=== PATIENT | male | born 1965 | race African-American/Black ===

== ENCOUNTER 2017-10-21 05:53 | Emergency (ER) | payer BC ==
[2015-02-10 11:20] VITALS: BMI 29.3
[~2017-10-21 05:53] MED LIST: AZOR 5-20 MG TA1 TAB PO; BAYER CHEWABLE81 MG PO; GALZIN50 MG; VITAMIN B-121000 MCG; [UNRECOGNIZED DRUG - OTHER]
[2017-10-21 06:18] LABS: APPEARANCE CLEAR (CLEAR); BILIRUBIN NEGATIVE (NEGATIVE); COLOR YELLOW (YELLOW); GLUCOSE 100 mg/dL (NEGATIVE); KETONE NEGATIVE (NEGATIVE); NITRITE NEGATIVE (NEGATIVE); PROTEIN 2+ mg/dL (NEGATIVE); SPECIFIC GRAVITY 1.015 (1.005-1.020); UROBILINOGEN NORMAL (NORMAL)
[2017-10-21 06:21] LABS: BASOPHILS 0.8 % (0-2); HEMATOCRIT 42.4 % (42.0-54.0); HEMOGLOBIN 14.2 g/dL (13.5-17.5); LYMPHOCYTES 23.3 % (15-50); MCH 27.7 pg (26.0-34.0); MCHC 33.5 g/dL (31.0-37.0); MCV 82.8 fL (80.0-100.0); MEAN PLATELET VOLUME 10.7 fL (7.4-10.4); MONOCYTES 7.8 % (2-11); NEUTROPHILS 66.1 % (40-80); PLATELET COUNT 212 10x3/uL (130-400); RBC 5.12 10x6/uL (4.20-6.10); RDW 13.4 % (11.5-14.5); WBC 5.1 10x3/uL (4.8-10.8)
[2017-10-21 06:54] LABS: ALBUMIN 4.1 g/dL (3.4-5.0); ANION GAP 13.4 mmol/L (8-16); BILIRUBIN - TOTAL 0.5 mg/dL (0.2-1.3); CARBON DIOXIDE 24.5 mmol/L (21.0-32.0); CREATININE - SERUM 1.1 mg/dL (0.6-1.3); POTASSIUM - SERUM 3.9 mmol/L (3.5-5.1); PROTEIN - SERUM 7.4 g/dL (6.4-8.2)
== END 2017-10-21 08:28 | disposition home or self-care (01) ==
LOC: D.ER 05:53
PROVIDERS: Family Medicine
DX: K57.92 Diverticulitis of intestine, part unspecified, without perforation or abscess without bleeding (principal); I10 Essential (primary) hypertension

== ENCOUNTER 2018-01-01 08:00 | Outpatient (CLI) | payer BC ==
[2015-02-10 11:20] VITALS: Wt 86.2 kg
[2018-01-01 14:28] LABS: HEMATOCRIT 38.7 % (42.0-54.0); HEMOGLOBIN 12.8 g/dL (13.5-17.5); MCH 27.1 pg (26.0-34.0); MCHC 33.1 g/dL (31.0-37.0); MEAN PLATELET VOLUME 10.1 fL (7.4-10.4); RBC 4.72 10x6/uL (4.20-6.10); RDW 13.7 % (11.5-14.5); WBC 3.2 10x3/uL (4.8-10.8)
== END 2018-01-02 08:01 | disposition home or self-care (01) ==
LOC: D.OPS 08:00 → EDSTATUS 01-03 12:30 → D.OPS 01-03 12:30
PROVIDERS: Anesthesiology
DX: M65.312 Trigger thumb, left thumb (principal); Z01.810 Encounter for preprocedural cardiovascular examination; Z01.811 Encounter for preprocedural respiratory examination; Z01.812 Encounter for preprocedural laboratory examination; Z53.9 Procedure and treatment not carried out, unspecified reason

== ENCOUNTER 2018-02-21 06:25 | Day surgery (SDC) | payer BC ==
[2018-02-20 19:20] LABS: HEMATOCRIT 41.4 % (42.0-54.0); HEMOGLOBIN 13.6 g/dL (13.5-17.5); MCH 27.5 pg (26.0-34.0); MCHC 32.9 g/dL (31.0-37.0); MCV 83.6 fL (80.0-100.0); MEAN PLATELET VOLUME 10.9 fL (7.4-10.4); RBC 4.95 10x6/uL (4.20-6.10); RDW 14.6 % (11.5-14.5); WBC 3.8 10x3/uL (4.8-10.8)
[~2018-02-21] VITALS: Ht 175.3 cm; Wt 86.2 kg
--- NOTE | ~2018-02-21 | OP ---
PATIENT NAME: CHARO PASTOR MEDICAL RECORD: [id number] :63 LOCATION:[facility] ADMISSION DATE: SURGEON: RAHEEM ROWE MD DATE OF OPERATION: 02/21/2018 PREOPERATIVE DIAGNOSIS: Trigger thumb, left thumb. POSTOPERATIVE DIAGNOSIS: Trigger thumb, left thumb. PROCEDURE: Left trigger thumb release. SURGEON: Raheem Rowe MD ANESTHESIA: Regional with TIVA. INTRAOPERATIVE COMPLICATIONS: None. SUMMARY OF PATHOLOGIC FINDINGS: The patient has a very tight A1 saud at the base of the thumb. There were minimal attritional changes seen of the flexor tendon of the thumb. OPERATIVE SUMMARY IN DETAIL: After obtaining the appropriate preoperative orthopedic surgery consent as well as anesthetic consultation, evaluation and clearance, the patient was brought to the operating room and placed on the operating table in supine position. After adequate general laryngeal mask airway was administered, tourniquet was placed on the proximal aspect of left upper extremity. Left upper extremity was then prepped and draped in routine sterile fashion. The arm was elevated and exsanguinated, tourniquet was inflated to 250 mmHg. Very minimal incision was made just over the A1 saud. Digital nerves were identified and gently spread. The A1 saud was identified and incised in its entirety under direct visualization. Once the A1 saud was completely incised, the thumb flexor tendons were evaluated and found to have slight attritional changes; however, no tearing was noted. This was then irrigated and closed with 4-0 Prolene. The area was irrigated and closed with Prolene. Sterile dressings were applied. Tourniquet was deflated. The patient was awakened and taken to the recovery room in stable condition. All final needle and sponge counts were correct. TRANSINT:[id number] Voice Confirmation ID: [id number] DOCUMENT ID: [id number] RAHEEM ROWE MD at 1418 CC: [id number] DICTATION DATE: 02/28/18 1241 MANUFACTURING QUALITY ENGINEER: 02/28/18 1249 [facility] 02/21/[address] [id number]
[2018-02-21 07:05] VITALS: BP 156/64; Ht 175.3 cm; Wt 86.2 kg
[2018-02-21] MEDS ORDERED: HYDROCODONE-APA1 TAB PO (09:14)
== END 2018-02-21 10:30 | disposition home or self-care (01) ==
LOC: D.OPS 06:25 → D.PAN 08:05 → D.OPS 08:05 → D.PAN 08:15 → D.OPS 08:15
PROVIDERS: Anesthesiology
DX: M65.312 Trigger thumb, left thumb (principal); Z01.812 Encounter for preprocedural laboratory examination

== ENCOUNTER → 2018-07-31 07:33 | Outpatient (CLI) | payer BC ==
[2018-02-21 07:05] VITALS: BMI 28.1
[~2018-07-31 07:33] MED LIST changes: +HYDROCODONE-APA1 TAB PO
== END | disposition home or self-care (01) ==
LOC: D.MRI 07:33
DX: M25.512 Pain in left shoulder (principal)

== ENCOUNTER 2018-11-26 05:35 | Day surgery (SDC) | payer BC ==
[2018-11-25 15:05] LABS: HEMATOCRIT 36.6 % (42.0-54.0); HEMOGLOBIN 12.3 g/dL (13.5-17.5); MCH 27.1 pg (26.0-34.0); MCHC 33.6 g/dL (31.0-37.0); MCV 80.6 fL (80.0-100.0); MEAN PLATELET VOLUME 10.2 fL (7.4-10.4); RBC 4.54 10x6/uL (4.20-6.10); RDW 14.1 % (11.5-14.5); WBC 2.7 10x3/uL (4.8-10.8)
[~2018-11-26 05:35] MED LIST changes: +CIALIS2.5 MG PO; +LISINOPRIL10 MG PO; +[UNRECOGNIZED DRUG - OTHER] PO
[2018-11-26] MEDS ORDERED: VALTREX500 MG PO (06:15)
[2018-11-26 06:18] VITALS: BP 111/69; BMI 28.4
--- NOTE | 2018-11-26 08:13 | NUR ---
[address] OHARA. Katy LEIJA R.N.
--- NOTE | 2018-11-26 08:49 | NUR ---
0845 REQUESTS PAIN MED. INFORMED NO PAIN MED ORDERED OR AVAILABLE. PT GIVEN ICE PACK. @ BEDSIDE. Katy LEIJA R.N.
--- NOTE | 2018-11-26 09:37 | NUR ---
0930 1 NORCIO 5/325MG PO FOR COMPLAINTS OF RECTAL PAIN @ 01/25. DENIES THE NEED TO URINATE @ THIS TIME. Katy LEIJA R.N.
--- NOTE | 2018-11-26 10:31 | OP ---
PATIENT NAME: CHARO PASTOR MEDICAL RECORD: [id number] :63 [facility] ADMISSION DATE: SURGEON: DARRYL OHARA MD DATE OF OPERATION: 11/26/2018 SURGEON: Darryl Ohara MD ANESTHESIA: TIVA by Orlin Butt CRNA DIAGNOSIS: Bladder outlet obstruction, elevated PSA of 3.46. PROCEDURE: Cystoscopy, transrectal ultrasound and prostate biopsy. FINDINGS: On cystoscopy, lateral lobe hyperplasia of the prostate. Inflammation of the trigone of the bladder with single ureteral orifices bilaterally. No bladder tumors were seen. On transrectal ultrasound, there is a 21 gram prostate without intraprostatic stones and no hypoechoic areas. SPECIMENS: Prostate biopsy cores. BLOOD LOSS: Minimal. CLINICAL HISTORY: This is a 53-year-old male, who was initially referred for low testosterone levels. He also has ED. He has some voiding symptoms including nocturia times 3. When we tested his PSA on 09/16/2018, it was 3.46. He comes today to have a prostate biopsy performed. As well, I will perform cystoscopy to evaluate his prostatic urethra. HE IS ALLERGIC TO JOSSIE AND CLINDAMYCIN. He was given Ancef hvac controls technician to the OR. DESCRIPTION OF PROCEDURE: The patient was given IV sedation. He was then placed into lithotomy position and prepped and draped. A 17-Divehi cystoscope with 30-degree lens was used for visualization. There are no penile urethral strictures. The prostatic urethra shows enlarged lateral lobes, which may be obstructive. Going into the bladder, there is inflammation of the trigone of the bladder, but no areas of bladder tumor. He has single ureteral orifices bilaterally. The bladder was not trabeculated. The bladder was then emptied through the cystoscope sheath and the scope was removed. We then introduced the transrectal ultrasound probe. Prostate size measurements were obtained. We estimated a prostate size of 21 grams. He has a flat, but wide prostate. Sextant biopsies were obtained with at least 3 cores from each sextant. Once all the specimens were obtained, the procedure was terminated. I will see the patient in followup in the next few days to review his pathology results with him. TRANSINT:[id number] Voice Confirmation ID: [id number] DOCUMENT ID: [id number] OPERATIVE REPORT [id number] CHARO PASTOR DARRYL OHARA MD at 1031 CC: [id number] DICTATION DATE: 11/26/18 0758 COMPETITIVE ATHLETE: 11/26/18 0814 [facility] [address] [id number]
== END 2018-11-26 10:20 | disposition home or self-care (01) ==
LOC: D.OPS 05:35
PROVIDERS: Anesthesiology; ATTEND Urology
DX: D07.5 Carcinoma in situ of prostate (principal); Z01.812 Encounter for preprocedural laboratory examination

== ENCOUNTER → 2018-12-02 13:16 | Outpatient (CLI) | payer BC ==
[2018-11-26 06:18] VITALS: BMI 28.4
[~2018-12-02 13:16] MED LIST changes: +VALTREX500 MG PO
[2018-12-04 09:12] LABS: TESTOSTERONE - FREE 2.8 pg/mL (7.2-24.0); TESTOSTERONE - SERUM 258 ng/dL (264-916)
== END | disposition home or self-care (01) ==
LOC: D.LAB 13:16
PROVIDERS: ATTEND Urology
DX: R53.83 Other fatigue (principal)

== ENCOUNTER → 2019-04-30 14:03 | Outpatient (CLI) | payer BC | END | disposition home or self-care (01) | LOC: D.HCCECHO 14:03 | PROVIDERS: ATTEND Internal Medicine Cardiovascular Disease | DX: S23.3XXA Sprain of ligaments of thoracic spine, initial encounter (principal) ==

== ENCOUNTER → 2020-08-18 07:43 | Outpatient (CLI) | payer BC ==
[2020-04-21 16:22] VITALS: BMI 27.6
[~2020-08-18 07:43] MED LIST changes: +AZITHROMYCIN500 MG PO; +GLUCOPHAGE500 MG PO; +OMNICEF300 MG PO; +PREDNISONE20 MG PO; +ZPAK PO
== END | disposition home or self-care (01) ==
LOC: D.LAB 07:43
PROVIDERS: ATTEND Internal Medicine Pulmonary Disease
DX: Z20.822 Contact with and (suspected) exposure to COVID-19 (principal)

== ENCOUNTER → 2020-08-24 08:38 | Outpatient (CLI) | payer BC ==
[2020-04-21 16:22] VITALS: BMI 27.6
== END | disposition home or self-care (01) ==
LOC: D.RT 08-23 07:51
PROVIDERS: ATTEND Internal Medicine Pulmonary Disease
DX: Z20.822 Contact with and (suspected) exposure to COVID-19 (principal)